=== PATIENT | female | born 1990 | race Caucasian/White ===

== ENCOUNTER 2019-09-09 01:24 | Emergency (ER) | payer SELFPAY ==
[~2019-09-09] VITALS: Ht 160 cm; Wt 75.7 kg
[2019-09-09 01:40] VITALS: BP 94/60
--- NOTE | 2019-09-09 01:44 | NUR ---
PT AMBULATED TO BED 4 WITH STEADY GAIT.
--- NOTE | 2019-09-09 02:00 | NUR ---
covering primary rn for lunch relief --- received a 30/f from triage for c/o left ear pain x 5 days. pt states "I feel like something is in there" no obvious foreign body noted. in bed for MSE. no distress noted.
[2019-09-09 02:32] VITALS: BP 94/60
--- NOTE | 2019-09-09 02:32 | NUR ---
Patient discharged with v/s stable. Written and verbal after care instructions given and explained. Patient alert, oriented and verbalized understanding of instructions. Ambulatory with steady gait. All questions addressed prior to discharge. ID band removed. Patient advised to follow up with PMD. Rx of CIPRODEX OTIC SUSPENSION given. Patient educated on indication of medication including possible reaction and side effects. Opportunity to ask questions provided and answered.
== END 2019-09-09 02:32 | disposition home or self-care (01) ==
LOC: MED 01:24
DX: H92.02 Otalgia, left ear (principal)
CPT/HCPCS: 99283

== ENCOUNTER 2019-12-04 08:26 | Emergency (ER) | payer SELFPAY ==
[~2019-12-04] VITALS: Ht 157.5 cm; Wt 77.6 kg
[2019-12-04 08:37] VITALS: BP 115/67
--- NOTE | 2019-12-04 08:46 | NUR ---
PT AMBULATED TO BED 9.
--- NOTE | 2019-12-04 08:51 | NUR ---
29 YO FEMALE CO SOB AND POSSIBLE . SOB STARTED YESTERDAY. PT STATES THAT SHE HAS TO HAVE INHALER PRESCRIBED DURING HER OTHER PREGNANCIES. PT IS 99% ON ROOM AIR AT THIS TIME. LUNG SOUNDS CLEAR THROUGHOUT.
--- NOTE | 2019-12-04 08:58 | NUR ---
ERMD AT BEDSIDE.
[2019-12-04 09:19] VITALS: BP 115/67
== END 2019-12-04 09:19 | disposition home or self-care (01) ==
LOC: MED 08:26
DX: O26.891 Other specified pregnancy related conditions, first trimester (principal); R06.00 Dyspnea, unspecified
CPT/HCPCS: 81002; 81025; 99283

== ENCOUNTER 2019-12-28 17:28 | Emergency (ER) | payer SELFPAY ==
[~2019-12-28] VITALS: Ht 157.5 cm; Wt 77.1 kg
[2019-12-28 17:32] VITALS: BP 120/75
--- NOTE | 2019-12-28 17:41 | NUR ---
29/F C/O NAUSEA WITHOUT VOMITING, VAGINAL BLEEDING & LOWER ABDOMINAL CRAMPING X YESTERDAY. VAGINAL BLEEDING HEAVY YESTERDAY, ONLY SPOTTING TODAY. PT CONCERNED FOR MISCARRIAGE. LMP 10/21/19. 9 WEEKS. VSS. NAD. MED HX: RIGHT OOPHORECTOMY
--- NOTE | 2019-12-28 18:00 | NUR ---
U/S TECH AT BEDSIDE
--- NOTE | 2019-12-28 18:08 | NUR ---
line maintenance technician at bedside for blood draw
[2019-12-28 18:27] LABS: BASOPHILS % (AUTO) 0.2 % (0.0-2.0); EOSINOPHILS # (AUTO) 0.2 K/uL (0-0.4); EOSINOPHILS % (AUTO) 1.7 % (0.0-4.0); HEMATOCRIT 36.3 % (36-48); HEMOGLOBIN 12.1 g/dL (12.0-16.0); LYMPHOCYTES # (AUTO) 2.6 K/uL (2.5-16.5); LYMPHOCYTES % (AUTO) 21.3 % (20.5-51.1); MEAN CORPUSCULAR HEMOGLOBIN 28 pg (27-31); MEAN CORPUSCULAR HGB CONC 34 g/dL (33-37); MEAN CORPUSCULAR VOLUME 84.2 fL (80-94); MONOCYTES # (AUTO) 0.6 K/uL (0.8-1.0); MONOCYTES % (AUTO) 5.1 % (1.7-9.3); NEUTROPHILS # (AUTO) 8.6 K/uL (1.8-7.7); NEUTROPHILS % (AUTO) 71.7 % (42.2-75.2); PLATELET COUNT (AUTO) 243 K/uL (140-450); RED CELL DISTRIBUTION WIDTH 12.7 % (11.6-13.7)
[2019-12-28 18:30] LABS: APPEARANCE,URINE HAZY (CLEAR); BILIRUBIN,URINE NEGATIVE (NEGATIVE); BLOOD, URINE TRACE-I (NEGATIVE); COLOR,URINE YELLOW (YELLOW); LEUKOCYTE ESTERASE ,URINE 1+ (NEGATIVE); NITRITE, URINE NEGATIVE (NEGATIVE); UGLUCOSE NEGATIVE (NEGATIVE)
[2019-12-28 18:49] LABS: ANION GAP 11.2 (8-16); CARBON DIOXIDE 25.6 mmol/L (21-32); CREATININE 0.7 mg/dL (0.6-1.3); POTASSIUM 3.8 mmol/L (3.5-5.1)
[2019-12-28 19:06] LABS: CALCIUM OXALATE CRYSTALS,UR 0-10 /HPF (None Seen); WBC,URINE 16-25 (MOD) /HPF (0-5)
--- NOTE | 2019-12-28 19:18 | NUR ---
RECEVIED REPORT FROM ERROL CARNEY. WILL CONT CARE AT THIS TIME.
[2019-12-28 19:54] VITALS: BP 120/75
== END 2019-12-28 19:54 | disposition home or self-care (01) ==
LOC: MED 17:28
DX: O23.40 Unspecified infection of urinary tract in pregnancy, unspecified trimester (principal); O20.0 Threatened abortion; Z3A.01 Less than 8 weeks gestation of pregnancy
CPT/HCPCS: 36415; 76801; 80048; 81001; 81025; 84702; 85025; 86886; 86900; 86901; 87086; 99284; Q0092

== ENCOUNTER 2020-04-01 06:40 | Inpatient (IN) | payer MEDICAID, SELFPAY ==
[~2020-04-01] VITALS: Ht 157.5 cm; Wt 81.6 kg
[2020-04-01] MEDS ORDERED: PRETAB PO (07:36)
[2020-04-01] MEDS: ACETAMINOPHEN 325 MG TAB PO PRN ×2 (08:39→15:16)
--- NOTE | 2020-04-01 08:41 | NUR ---
PATIENT HAS BEEN SCREENED AND CATEGORIZED LOW NUTRITION RISK. PATIENT WILL BE SEEN WITHIN 7 DAYS OF ADMISSION. 04/07/[address]
[2020-04-01 08:43] LABS: BASOPHILS % (AUTO) 0.5 % (0.0-2.0); EOSINOPHILS # (AUTO) 0.1 K/uL (0-0.4); EOSINOPHILS % (AUTO) 2.2 % (0.0-4.0); HEMOGLOBIN 10.5 g/dL (12.0-16.0); LYMPHOCYTES % (AUTO) 17.7 % (20.5-51.1); MEAN CORPUSCULAR HEMOGLOBIN 28 pg (27-31); MEAN CORPUSCULAR HGB CONC 34 g/dL (33-37); MONOCYTES # (AUTO) 0.6 K/uL (0.8-1.0); MONOCYTES % (AUTO) 10.4 % (1.7-9.3); NEUTROPHILS # (AUTO) 3.8 K/uL (1.8-7.7); NEUTROPHILS % (AUTO) 69.2 % (42.2-75.2); PLATELET COUNT (AUTO) 185 K/uL (140-450); RED BLOOD CELL COUNT(AUTO) 3.69 MIL/uL (4.20-5.40); RED CELL DISTRIBUTION WIDTH 12.9 % (11.6-13.7); WHITE BLOOD COUNT (AUTO) 5.5 K/uL (4.8-10.8)
[2020-04-01 08:57] VITALS: BP 109/58
[2020-04-01 09:20] LABS: ANION GAP 14.8 (8-16); CREATININE 0.7 mg/dL (0.6-1.3); POTASSIUM 3.8 mmol/L (3.5-5.1)
[2020-04-01 09:20] LABS: APPEARANCE,URINE CLEAR (CLEAR); BILIRUBIN,URINE NEGATIVE (NEGATIVE); BLOOD, URINE NEGATIVE (NEGATIVE); COLOR,URINE YELLOW (YELLOW); LEUKOCYTE ESTERASE ,URINE NEGATIVE (NEGATIVE); NITRITE, URINE NEGATIVE (NEGATIVE); PH,URINE 5.5 (5.0-9.0); UGLUCOSE NEGATIVE (NEGATIVE)
[2020-04-01 09:26] LABS: ALBUMIN 2.7 g/dL (3.4-5.0); TOTAL BILIRUBIN 0.3 mg/dL (0.0-1.0)
[2020-04-01] MEDS ORDERED: COMMUNICATION ORDER MC PRN (10:10)
[2020-04-02] MEDS: ACETAMINOPHEN 325 MG TAB PO PRN (04:23)
[2020-04-02] MEDS ORDERED: VITAMIN D 400 IU TAB PO SCH (09:00)
[2020-04-02] MEDS ORDERED: ASCORBIC ACID 500 MG TAB PO SCH (09:00)
[2020-04-02] MEDS ORDERED: ZINC SULF 220 MG CAP PO SCH (09:00)
[2020-04-02 09:06] LABS: FERRITIN 27 ng/mL (15-150); LACTATE DEHYDROGENASE 139 IU/L (119-226)
[2020-04-04 07:53] LABS: LD1 FRACTION 25 % (17-32); LD2 FRACTION 36 % (25-40); LD3 FRACTION 21 % (17-27); LD4 FRACTION 9 % (5-13); LD5 FRACTION 9 % (4-20)
== END 2020-04-02 08:15 | disposition home or self-care (01) | DRG 566 ==
LOC: MLD 06:40 → MFCC 07:29 → OBSVTOIN 16:13
PROVIDERS: ADMIT Obstetrics & Gynecology; ATTEND Obstetrics & Gynecology
DX: O98.512 Other viral diseases complicating pregnancy, second trimester (principal); O99.012 Anemia complicating pregnancy, second trimester; U07.1 COVID-19; O99.512 Diseases of the respiratory system complicating pregnancy, second trimester; J98.8 Other specified respiratory disorders; Z3A.23 23 weeks gestation of pregnancy; D64.9 Anemia, unspecified
CPT/HCPCS: G0378 ×10; 36415; 51702; 59409; 76805; 76817; 80053; 81003; 82728; 83625; 85025; 85379; 86140; 87804; C1758; J7120; U0003